=== PATIENT | male | born 1970 | race Caucasian/White ===

== ENCOUNTER → 2023-04-05 11:11 | Outpatient (BNVA) | payer OTHER, SELFPAY | PROVIDERS: PCP Internal Medicine; Visit Provider Physician Assistant ==

== ENCOUNTER 2023-05-08 11:08 | Outpatient (AMB) | payer OTHER, SELFPAY ==
--- NOTE | 2023-05-08 11:10 | A.OFFVIS_ITS ---
Intake VS Expanded 05/08/23 11:16 BP 161/88 H Blood Pressure Location Rt brachial Blood Pressure Position Sitting Pulse 135 H Pulse Source Pulse Oximeter Temp 97.2 F Temperature Source Temporal Artery Scan Pulse Oximetry 95 Oxygen Delivery Method Room Air Height 5 ft 9 in Weight 232 lb 6.4 oz BMI 34.3 Body Fat % 32.3 Body Fat Mass 75.0 Fat Free Mass 157.4 Visceral Fat Rating 17.0 Body Water % 47.7 Body Water Mass 110.8 Muscle Mass/Score 149.6 Basal Metabolic Rate/Score 2,129 Comment pt stated he ran across the parking lot Intake Visit Reasons: (OV) [employer] BMI 34.4 MWL Allergies trazodone Allergy (Intermediate, Verified 05/08/23 11:14) Rash aspirin Allergy (Unknown, Verified 05/08/23 11:14) nose bleeds benztropine [Cogentin] Allergy (Unknown, Verified 05/08/23 11:14) Rash lithium Allergy (Unknown, Verified 05/08/23 11:14) kidney failure risperidone [Risperdal] Allergy (Unknown, Verified 05/08/23 11:14) Rash atorvastatin [From Lipitor] Adverse Reaction (Mild, Verified 05/08/23 11:14) Rash mirtazapine [From Remeron] Adverse Reaction (Mild, Verified 05/08/23 11:14) Rash Wheat Allergy (Unknown, Uncoded 08/15/18 00:00) vomit Whey products Allergy (Unknown, Uncoded 08/15/18 00:00) vomit HPI HPI Comments History of Present Illness Details This is a 52 year old man who is here to start MWL program. He was in our MWL program a few years ago. His goal is to reduce risk for pre DM and lose weight. He reports first being concerned about his weight many years. He has tried multiple methods of weight loss including [facility] program, OTC pills without permanent results. He lives alone. He works [employer] from 11 am - 2pm. He does not have internet or a smart phone. On SSI - no snap. He wakes at: 8am, bed at 9pm Breakfast: 8:30 - yogurt or bran flakes or oatmeal 2 % milk. Sometimes decaf coffee with splenda and 2% milk. Dilutes fruit juice Lunch: skips lunch 3 d/week. If eats, has salad or air fried pork chop and green beans. Crystal Light Dinner: 5pm - salad and same as lunch. 2% milk or water. After dinner: nothing Other snacks: may have a granola bar in the afternoon Liquids: Rare soda, diluted juice and Gatorade 0 Alcohol intake: none, tobacco: none, marijuana: none Exercise: no gym membership or equipment at home, no internet service at his home. Likes to walk. ELLA: 0 ESS:3 GERD1: QOL:100 PFSH Surgical History Hx of endoscopy Hx of colonoscopy Hx of LASIK Family History Mother Diabetes Colitis Depression Father Cataracts, both eyes Diabetes Social History (Updated 04/05/23 @ 11:34 by Diane Ramon CMA) Alcohol intake: never Patient Tobacco Use Status: Never used Tobacco Assessment & Plan Assessment & Plan (1) Obesity: Code(s): E66.9 - Obesity, unspecified Plan: This is a 52 yo man with obesity and Aspergers symdrome with multiple medical problems who will start MWL program. He will start MWL classes and watch all classes in the office before his appt with Glory. He does not have internet access. 1. Adequate sleep of 7-8 hours per night discussed 2. Healthy meal plan - stop skipping meals and stop sweetened drinks - needs to work on portion size. He does not want to use shakes. All meals/MR's need to take 20 minutes to complete Breakfast -italian yogurt with 1/2 berries - list given to him. Lunch - 6 oz lean protein and 8 oz vegetables - list given Afternoon - stop granola bars - may have protein bar Dinner - 6 oz lean protein, 8 ozvegetable, 1 serving fruit Exercise - no access to gym equipment or videos. Will walk 20 minutes every morning and try to walk a second time per day for 20 minutes. Next appt with Glory in 4 weeks, will watch MWL classes in office. Patient is morbidly obese and is not considered stable at this time.?I spent a total of 45 minutes reviewing/updating records, examining the patient and counseling the patient on weight management as detailed above. (2) Hypothyroid: Code(s): E03.9 - Hypothyroidism, unspecified (3) HTN (hypertension), benign: Code(s): I10 - Essential (primary) hypertension (4) Hyperlipidemia: Code(s): E78.5 - Hyperlipidemia, unspecified (5) Bipolar 1 disorder: Code(s): F31.9 - Bipolar disorder, unspecified (6) Aspergers' syndrome: Code(s): F84.5 - Asperger's syndrome (7) Irregular heart rate: Code(s): I49.9 - Cardiac arrhythmia, unspecified Plan see above Coding Level of Care Code New Pt Level 4 (03136) Diagnoses Obesity E66.9 Hypothyroid E03.9 HTN (hypertension), benign I10 Hyperlipidemia E78.5 Bipolar 1 disorder F31.9 Aspergers' syndrome F84.5 Irregular heart rate I49.9
[2023-05-08 11:16] VITALS: BP 161/88; PULSE 135; TEMP 36.2; O2SAT 95; BMI 34.3
== END 2023-05-08 11:54 | disposition home or self-care (01) ==
PROVIDERS: PCP Internal Medicine; Visit Provider Physician Assistant
DX: E66.9 Obesity, unspecified (principal); E03.9 Hypothyroidism, unspecified; I10 Essential (primary) hypertension; E78.5 Hyperlipidemia, unspecified; F31.9 Bipolar disorder, unspecified; F84.5 Asperger's syndrome; I49.9 Cardiac arrhythmia, unspecified
CPT/HCPCS: 99204

== ENCOUNTER → 2023-05-08 11:08 | Outpatient (BNVA) | payer OTHER, SELFPAY | PROVIDERS: PCP Internal Medicine; Visit Provider Physician Assistant | DX: E66.9 Obesity, unspecified (principal); Z68.34 Body mass index [BMI] 34.0-34.9, adult; E03.9 Hypothyroidism, unspecified; I10 Essential (primary) hypertension; E78.5 Hyperlipidemia, unspecified; F31.9 Bipolar disorder, unspecified; F84.5 Asperger's syndrome; I49.9 Cardiac arrhythmia, unspecified | CPT/HCPCS: 99202 ==

== ENCOUNTER 2023-06-05 10:53 | Outpatient (AMB) | payer OTHER, SELFPAY ==
--- NOTE | 2023-06-05 10:59 | A.OFFVIS_ITS ---
Intake Intake Visit Reasons: (OV) Initial Nutrition MWL Allergies trazodone Allergy (Intermediate, Verified 05/08/23 11:14) Rash aspirin Allergy (Unknown, Verified 05/08/23 11:14) nose bleeds benztropine [Cogentin] Allergy (Unknown, Verified 05/08/23 11:14) Rash lithium Allergy (Unknown, Verified 05/08/23 11:14) kidney failure risperidone [Risperdal] Allergy (Unknown, Verified 05/08/23 11:14) Rash atorvastatin [From Lipitor] Adverse Reaction (Mild, Verified 05/08/23 11:14) Rash mirtazapine [From Remeron] Adverse Reaction (Mild, Verified 05/08/23 11:14) Rash Wheat Allergy (Unknown, Uncoded 08/15/18 00:00) vomit Whey products Allergy (Unknown, Uncoded 08/15/18 00:00) vomit HPI Nutrition Presentation Details Medical weight loss - start date Reason for consult elevated BMI Diet Assmnt Details Reports he has has issues with portion control - related to depression. Has therapist, talks about food with them. he reports he hasn't implemented anything discussed in initial appt with PA. He is concerned about having prediabetes, his mother has diabetes. 1 oatmeal packet - pre portioned. likes salad and pork chops. pt not able to provide typical intake or a 24 hour recall but shares foods he likes/dislikes. Likes yogurt, pork chops, baked potato, oatmeal, decaf coffee, likes to drink milk (3 cups at a time) . States sometimes he overeats so much he vomits. Has a nutrition book and read he needs to eat less than 1200kal per day. Dietary counseling reduction Diagnosis Nutrition problem #1 overweight/obesity As related to (etiology) #1 excess energy intake and physical inactivity As evidenced by (sign/symptom) #1 high BMI Monitoring/Goals Nutrition problem monitoring total energy intake, level of knowledge/skill, total PRO intake, total CHO intake and weight Learning/Education Readiness to learn fair Stages of change contemplation Most Recent Diabetes Results: No Data to Display PFSH Surgical History Hx of endoscopy Hx of colonoscopy Hx of LASIK Family History Mother Diabetes Colitis Depression Father Cataracts, both eyes Diabetes Social History Alcohol intake: never Patient Tobacco Use Status: Never used Tobacco Assessment & Plan Assessment & Plan (1) Obesity (BMI 30-39.9): Code(s): E66.9 - Obesity, unspecified Plan rec portion methods such as small plates, utensils, meal prep containers from the [employer] store, premade salads. Encouraged structured meals that contain protein, veg and carb in small portions. Coding Level of Care Code Nutr Indiv Intake (72580) Diagnoses Obesity (BMI 30-39.9) E66.9 Time Spent (min) 35
== END 2023-06-05 11:42 | disposition home or self-care (01) ==
PROVIDERS: PCP Internal Medicine; Visit Provider Dietitian, Registered
DX: E66.9 Obesity, unspecified (principal)

== ENCOUNTER → 2023-06-05 10:53 | Outpatient (BNVA) | payer OTHER, SELFPAY | PROVIDERS: PCP Internal Medicine; Visit Provider Dietitian, Registered | DX: E66.9 Obesity, unspecified (principal) | CPT/HCPCS: 97802 ==

== ENCOUNTER 2023-08-03 10:59 | Outpatient (AMB) | payer OTHER, SELFPAY ==
--- NOTE | 2023-08-03 11:27 | MHC.OFFVISWM ---
VS Expanded 08/03/23 11:48 BP 144/80 H Blood Pressure Location Rt brachial Blood Pressure Position Sitting Pulse 126 H Pulse Source Pulse Oximeter Temp 96.8 F Temperature Source Tympanic Pulse Oximetry 92 Oxygen Delivery Method Room Air Height 5 ft 9 in Weight 236 lb 3.2 oz BMI 34.9 Body Fat % 32.6 Body Fat Mass 77.0 Fat Free Mass 159.2 Visceral Fat Rating 18.0 Body Water % 47.4 Body Water Mass 112.0 Muscle Mass/Score 151.2 Basal Metabolic Rate/Score 2,156 Intake Visit Reasons: (OV) f/u MWL Allergies trazodone Allergy (Intermediate, Verified 08/03/23 11:41) Rash aspirin Allergy (Unknown, Verified 08/03/23 11:41) nose bleeds benztropine [Cogentin] Allergy (Unknown, Verified 08/03/23 11:41) Rash lithium Allergy (Unknown, Verified 08/03/23 11:41) kidney failure risperidone [Risperdal] Allergy (Unknown, Verified 08/03/23 11:41) Rash atorvastatin [From Lipitor] Adverse Reaction (Mild, Verified 08/03/23 11:41) Rash mirtazapine [From Remeron] Adverse Reaction (Mild, Verified 08/03/23 11:41) Rash Wheat Allergy (Unknown, Uncoded 08/03/23 11:41) vomit Whey products Allergy (Unknown, Uncoded 08/03/23 11:41) vomit Medication List - Last Reconciled 08/03/23 by ALLAN Colvin diltiazem HCl ER (DILT-XR) 120 mg PO DAILY fluoxetine 20 mg PO DAILY guanfacine ER 2 mg PO DAILY levothyroxine 50 mcg PO DAILY lisinopril mg PO lorazepam 1 mg PO BID melatonin 5 mg PO BEDTIME olanzapine 15 mg PO BEDTIME olanzapine 5 mg PO BEDTIME pravastatin 20 mg PO DAILY HPI Comments Details: Pt presents in followup for MWL. Visit #3. Starting weight/BMI: 232.4/34.3 Total weight change: +3.8lbs Meal plan: Breakfast - latvian yogurt with 1/2c berries Lunch - 6 oz lean protein and 8 oz vegetables - list given Afternoon - stop granola bars - may have protein bar Dinner - 6 oz lean protein, 8 oz vegetable, 1 serving fruit Pt reports he is going to see a heart doctor for high HR. Planning to see a specialist August 15. No lightheadedness/dizziness or chest pain currently. Pt reports it's been hard following the plan. Cut out soda, changed to Splenda, trying not to eat carbohydrates. Is hesitant to exercise due to HR. Today had a cup of decaf coffee with egg McMuffin, glass of orange juice. Also has been drinking green tea with Splenda. Yesterday had a tuna fish sandwich and some fat free milk. Trying to eat more fruit and salad. Pt continues to struggle with portion control. Has not yet watched [employer] videos- no internet at home. PFSH Surgical History Hx of endoscopy Hx of colonoscopy Hx of LASIK Family History Mother Diabetes Colitis Depression Father Cataracts, both eyes Diabetes Social History Alcohol intake: never Patient Tobacco Use Status: Never used Tobacco Assessment & Plan Assessment & Plan (1) Obesity: Code(s): E66.9 - Obesity, unspecified Category: Medical (2) Irregular heart rate: Code(s): I49.9 - Cardiac arrhythmia, unspecified Category: Medical (3) Aspergers' syndrome: Code(s): F84.5 - Asperger's syndrome Category: Medical (4) Bipolar 1 disorder: Code(s): F31.9 - Bipolar disorder, unspecified Category: Medical (5) Hyperlipidemia: Code(s): E78.5 - Hyperlipidemia, unspecified Category: Medical (6) HTN (hypertension), benign: Code(s): I10 - Essential (primary) hypertension Category: Medical (7) Hypothyroid: Code(s): E03.9 - Hypothyroidism, unspecified Category: Medical Plan Pt will have followup after visit to address HR and hopefully at that point will be able to exercise more. We discussed that he has made a lot of positive changes already like giving up soda and trying to cut back on carbs. He still needs to increase his protein intake and reduce portions. Gave handout on protein bars and discussed that they are a good option for days when he is busy. RTC 1 month for in person visit. Patient is obese and is not considered stable at this time. I spent a total of 30 minutes reviewing/updating records, examining the patient and counseling the patient on weight management as detailed above.
[2023-08-03 11:48] VITALS: BP 144/80; PULSE 126; TEMP 36; O2SAT 92; BMI 34.9
== END 2023-08-03 12:12 | disposition home or self-care (01) ==
PROVIDERS: PCP Internal Medicine; Visit Provider Physician Assistant Surgical
DX: E66.9 Obesity, unspecified (principal); I49.9 Cardiac arrhythmia, unspecified; F84.5 Asperger's syndrome; F31.9 Bipolar disorder, unspecified; E78.5 Hyperlipidemia, unspecified; I10 Essential (primary) hypertension; E03.9 Hypothyroidism, unspecified
CPT/HCPCS: 99214

== ENCOUNTER → 2023-08-03 10:59 | Outpatient (BNVA) | payer OTHER, SELFPAY | PROVIDERS: PCP Internal Medicine; Visit Provider Physician Assistant Surgical | DX: E66.9 Obesity, unspecified (principal); E78.5 Hyperlipidemia, unspecified; E03.9 Hypothyroidism, unspecified; I10 Essential (primary) hypertension; I49.9 Cardiac arrhythmia, unspecified; F84.5 Asperger's syndrome; F31.9 Bipolar disorder, unspecified; Z68.34 Body mass index [BMI] 34.0-34.9, adult | CPT/HCPCS: 99212 ==

== ENCOUNTER 2024-01-01 12:13 | Outpatient (AMB) | payer OTHER, SELFPAY ==
--- NOTE | 2024-01-01 12:04 | A.OFFVIS_ITS ---
VS Expanded 01/01/24 12:17 Height 5 ft 9 in Weight 248 lb BMI 36.6 Intake Visit Reasons: (TV) F/U MWL Allergies trazodone Allergy (Intermediate, Verified 08/03/23 11:41) Rash aspirin Allergy (Unknown, Verified 08/03/23 11:41) nose bleeds benztropine [Cogentin] Allergy (Unknown, Verified 08/03/23 11:41) Rash lithium Allergy (Unknown, Verified 08/03/23 11:41) kidney failure risperidone [Risperdal] Allergy (Unknown, Verified 08/03/23 11:41) Rash atorvastatin [From Lipitor] Adverse Reaction (Mild, Verified 08/03/23 11:41) Rash mirtazapine [From Remeron] Adverse Reaction (Mild, Verified 08/03/23 11:41) Rash Wheat Allergy (Unknown, Uncoded 08/03/23 11:41) vomit Whey products Allergy (Unknown, Uncoded 08/03/23 11:41) vomit Medication List - Last Reconciled 01/01/24 by ALLAN Colvin diltiazem HCl ER (DILT-XR) 120 mg PO DAILY fluoxetine 20 mg PO DAILY guanfacine ER 2 mg PO DAILY levothyroxine 50 mcg PO DAILY lisinopril mg PO lorazepam 1 mg PO BID melatonin 5 mg PO BEDTIME olanzapine 15 mg PO BEDTIME olanzapine 5 mg PO BEDTIME pravastatin 20 mg PO DAILY HPI Comments Details: Pt presents in followup for MWL. Visit #4. Starting weight/BMI: 232.4/34.3 Weight last visit: 236 Total weight change: +15.6lbs Pt reports I'm coming down with something. Recently was told his A1C increased to 7.1, interested in food options for glycemic control. Was started on metformin. Drinks a lot of milk. Continues to struggle with portion control. Pt reports has difficulty getting in touch with heart doctor , they never called me. Meal plan: Breakfast - new zealander yogurt with berries Lunch - 6 oz lean protein and 8 oz vegetables - list given Afternoon - protein bar Dinner - 6 oz lean protein, 8 oz vegetable, 1 serving fruit Plans to increase walking for exercise. PFSH Surgical History Hx of endoscopy Hx of colonoscopy Hx of LASIK Family History Mother Diabetes Colitis Depression Father Cataracts, both eyes Diabetes Social History Alcohol intake: never Patient Tobacco Use Status: Never used Tobacco Telehealth Telehealth Telehealth Platform: Telephone Location of provider rendering services: practice address Location of patient: address on file Patient Identification confirmed using: Name, : Yes Telehealth method: voice only Patient verbally consented to treatment: Yes Patient verbally consented to billing insurance company: Yes Patient informed of any privacy concerns related to visit: Yes Minutes spent on Phone/Video with Pt.: 20 Assessment & Plan Assessment & Plan (1) Obesity: Code(s): E66.9 - Obesity, unspecified Category: Medical Plan Reviewed food list for weight management with pt. He does not have a cell phone that can receive pictures so we reviewed this via phone call. Discussed limiting any beverages, only drink water or zero calorie beverages. Reiterated high protein meal plan listed above. Gave brand names for protein bars and shakes. RTC 3 months. Will provide handouts in person at next visit. I spent a total of 30 minutes reviewing/updating records, examining the patient and counseling the patient on weight management as detailed above.
[2024-01-01 12:17] VITALS: BMI 36.6
== END 2024-01-01 12:33 | disposition home or self-care (01) ==
LOC: HO.HBS 12:13
PROVIDERS: PCP Internal Medicine; Visit Provider Physician Assistant Surgical
DX: E66.9 Obesity, unspecified (principal); Z68.36 Body mass index [BMI] 36.0-36.9, adult
CPT/HCPCS: 99442; G2211

== ENCOUNTER → 2024-01-01 12:13 | Outpatient (BNVA) | payer OTHER, SELFPAY | PROVIDERS: PCP Internal Medicine; Visit Provider Physician Assistant Surgical ==

== ENCOUNTER 2024-03-11 10:43 | Outpatient (AMB) | payer OTHER, SELFPAY ==
--- NOTE | 2024-03-11 10:47 | A.OFFVIS_ITS ---
VS Expanded 03/11/24 11:20 BP 124/82 Blood Pressure Location Rt brachial Blood Pressure Position Sitting Pulse 100 Pulse Source Pulse Oximeter Temp 97.7 F Temperature Source Temporal Artery Scan Pulse Oximetry 95 Oxygen Delivery Method Room Air Height 5 ft 9 in Weight 242 lb 6.4 oz BMI 35.8 Body Fat % 34.6 Body Fat Mass 83.8 Fat Free Mass 158.6 Visceral Fat Rating 19.0 Body Water % 45.5 Body Water Mass 110.2 Muscle Mass/Score 150.8 Basal Metabolic Rate/Score 2,158 Intake Visit Reasons: (OV) F/U MWL per [place] Allergies trazodone Allergy (Intermediate, Verified 03/11/24 11:00) Rash aspirin Allergy (Unknown, Verified 03/11/24 11:00) nose bleeds benztropine [Cogentin] Allergy (Unknown, Verified 03/11/24 11:00) Rash lithium Allergy (Unknown, Verified 03/11/24 11:00) kidney failure risperidone [Risperdal] Allergy (Unknown, Verified 03/11/24 11:00) Rash atorvastatin [From Lipitor] Adverse Reaction (Mild, Verified 03/11/24 11:00) Rash mirtazapine [From Remeron] Adverse Reaction (Mild, Verified 03/11/24 11:00) Rash Wheat Allergy (Unknown, Uncoded 08/03/23 11:41) vomit Whey products Allergy (Unknown, Uncoded 08/03/23 11:41) vomit Medication List - Last Reconciled 03/11/24 by ALLAN Colvin diltiazem HCl ER (DILT-XR) 120 mg PO DAILY fluoxetine 20 mg PO DAILY guanfacine ER 2 mg PO DAILY levothyroxine 50 mcg PO DAILY lisinopril mg PO lorazepam 1 mg PO BID melatonin 5 mg PO BEDTIME metformin ER 500 mg PO DAILY olanzapine 15 mg PO BEDTIME olanzapine 5 mg PO BEDTIME pravastatin 20 mg PO DAILY HPI Comments Details: Starting weight/BMI: 232.4/34.3 Weight last visit: 248 Today's weight: 242.4 (-5.6) Total weight change: +8lbs Pt reports I'm coming down with something. Recently was told his A1C increased to 7.1 in Dec. Was started on metformin, denies side effects. Reports his provider wanted to start the needle but he did not want to (not insulin- Trulicity, etc). Continues to struggle with portion control, always feels hungry. Meal plan: Breakfast - chinese yogurt with berries Lunch - 6 oz lean protein and 8 oz vegetables Afternoon - protein bar Dinner - 6 oz lean protein, 8 oz vegetable, 1 serving fruit bought apples instead of watermelon, stopped soda/Gatorade/iced teas, buying wheat bread and low samir dumont for sandwiches tries to drink water, uses Crystal Light, does drink milk sometimes but has cut down Wants to increase walking for exercise. PFSH Surgical History Hx of endoscopy Hx of colonoscopy Hx of LASIK Family History Mother Diabetes Colitis Depression Father Cataracts, both eyes Diabetes Social History Alcohol intake: never Patient Tobacco Use Status: Never used Tobacco Assessment & Plan Assessment & Plan (1) Obesity: Code(s): E66.9 - Obesity, unspecified Category: Medical (2) Hypothyroid: Code(s): E03.9 - Hypothyroidism, unspecified Category: Medical (3) HTN (hypertension), benign: Code(s): I10 - Essential (primary) hypertension Category: Medical (4) Hyperlipidemia: Code(s): E78.5 - Hyperlipidemia, unspecified Category: Medical (5) Aspergers' syndrome: Code(s): F84.5 - Asperger's syndrome Category: Medical (6) Irregular heart rate: Code(s): I49.9 - Cardiac arrhythmia, unspecified Category: Medical (7) Bipolar 1 disorder: Code(s): F31.9 - Bipolar disorder, unspecified Category: Medical Plan Pt will continue same meal plan. I encouraged him that he has made a lot of positive healthy nutrition changes. Encouraged him to exercise as part of his weight loss plan. Provided healthy foods handout that we discussed at last visit. RTC 3 months. I spent a total of 30 minutes reviewing/updating records, examining the patient and counseling the patient on weight management as detailed above.
[2024-03-11 11:20] VITALS: BP 124/82; PULSE 100; TEMP 36.5; O2SAT 95; BMI 35.8
--- OUTSIDE RECORDS SUMMARY | 2024-03-13 14:48 | XMS_ITS | Clinical Summary ---
Author Organization Unknown Care Team Providers Care Cloth Finisher Name Role Phone AIMEE SAUCEDO, BRIDGER Unavailable Unavailable GILBERT NOBLE, LENI Unavailable Unavailable Payers Payer Name Policy Type Policy Number Effective Date Expira tion Date [facility] [id number] [place]ID [place] [id number] MEDICARE - [place] [id number] Problems Condition Name Condition Details Condition Category Status Onset Date Resolution Date Last Treatment Date Treating Clinician Comments BIPOLAR DISORDER, CURRENT EPISODE DEPRESSED, MILD Active 2022-04 00:00: 00 GENERALIZED ANXIETY DISORDER Active 2022-04 00:00: 00 AUTISTIC DISORDER Active 2022-04 00:00: 00 Allergies, Adverse Reactions, Alerts Allergy Name Allergy Type Status Severity Reaction(s) Onset Date Inactive Date Treating Clinician Comments BACTRIM Propensity to adverse reactions Active 2022-04 18:03: 08 TRAZADONE Propensity to adverse reactions Active 2022-04 18:02: 53 ALBUTEROL Propensity to adverse reactions Active 2022-04 18:03: 26 REMERON Propensity to adverse reactions Active 2022-04 18:06: 15 LITHIUM Propensity to adverse reactions Active 2022-04 18:03: 41 HYDROXYZINE PAMOATE Propensity to adverse reactions Active 2022-04 18:04: 50 RISPERIDONE Propensity to adverse reactions Active 2022-04 08:58: 18 ASPIRIN RELATED MEDICATIONS Propensity to adverse reactions Active 2022-04 18:05: 32 Medications Ordered Medication Name Filled Medication Name Start Date Stop Date Current Medication? Ordering Clinician Indication Dosage Frequency Signature (SIG) Comments Components fluoxetine 20 mg capsule 2022-04 00:00: 00 Yes [id number] Per instruc tions EVERY DAY Per instructio ns EVERY DAY (route: oral) Med Classific ation: Central Nervous System Agents guanfacine ER 2 mg tablet,exte nded release 24 hr 2022-04 00:00: 00 01-22 00:00 :00 No [id number] Per instruc tions EVERY Per instructio ns EVERY (route: oral) Med Classific ation: Central Nervous System Agents lorazepam 1 mg tablet 2022-04 00:00: 00 Yes [id number] Per instruc tions TWICE DAILY NEEDED Per instructio ns TWICE DAILY NEEDED (route: oral) Med Classific ation: Central Nervous System Agents melatonin 5 mg tablet 2022-04 00:00: 00 Yes [id number] Per instruc tions EVERY NIGHT AT BEDTIME NEEDED Per instructio ns EVERY NIGHT AT BEDTIME NEEDED (route: oral) Med Classific ation: Central Nervous System Agents olanzapine 5 mg tablet 2022-04 00:00: 00 01-22 00:00 :00 No [id number] Per instruc tions EVERY DAY NEEDED Per instructio ns EVERY DAY NEEDED (route: oral) Med Classific ation: Central Nervous System Agents DILT-XR 120 mg capsule, extended release 2022-04 00:00: 00 Yes [id number] Unavailable Per instruc tions DAILY Per instructio ns DAILY (route: oral) Med Classific ation: Cardiovas cular Therapy Agents olanzapine 15 mg tablet 12-21 00:00: 00 Yes [id number] Per instruc tions AT BEDTIME Per instructio ns AT BEDTIME (route: oral) Med Classific ation: Central Nervous System Agents acetaminoph en 325 mg tablet 2022-04 00:00: 00 Yes [id number] 325 mg EVERY 4 HOURS 325 mg EVERY 4 HOURS (route: oral) Med Classific ation: Analgesic , Anti-infl ammatory or Antipyret ic cetirizine 10 mg tablet 2022-04 0 00:00: 00 Yes [id number] 10 mg DAILY 10 mg DAILY (route: oral) Med Classific ation: Respirato ry Therapy Agents guanfacine 2 mg tablet 2022-04 00:00: 00 11-16 23:59 :00 No [id number] 2.5 mg DAILY 2.5 mg DAILY (route: oral) Med Classific ation: Cardiovas cular Therapy Agents levothyroxi ne 50 mcg tablet 2022-04 0 00:00: 00 Yes [id number] 50 mcg DAILY 50 mcg DAILY (route: oral) Med Classific ation: Endocrine lisinopril 2.5 mg tablet 2022-04 00:00: 00 11-16 23:59 :00 No [id number] 25 mg DAILY 25 mg DAILY (route: oral) Med Classific ation: Cardiovas cular Therapy Agents pravastatin 10 mg tablet 2022-04 00:00: 00 11-16 23:59 :00 No [id number] 10 mg BEDTIME 10 mg BEDTIME (route: oral) Med Classific ation: Cardiovas cular Therapy Agents guanfacine ER 3 mg tablet,exte nded release 24 hr 11-16 00:00: 00 Yes [id number] 3 mg DAILY 3 mg PRISCILLA Y (route: oral) Med Classific ation: Central Nervous System Agents lisinopril 5 mg tablet 11-16 00:00: 00 12-26 23:59 :00 No [id number] 25 mg DAILY 25 mg DAILY (route: oral) Med Classific ation: Cardiovas cular Therapy Agents pravastatin 40 mg tablet 11-16 00:00: 00 Yes [id number] 40 mg BEDTIME 40 mg BEDTIME (route: oral) Med Classific ation: Cardiovas cular Therapy Agents metformin ER 500 mg tablet,exte nded release 24hr (osmotic) 12-26 00:00: 00 Yes [id number] 500 mg DAILY 500 mg DAILY (route: oral) Med Classific ation: Endocrine docusate sodium 100 mg capsule 12-26 00:00: 00 Yes [id number] 1 capsule 2 TIMES DAILY 1 capsule 2 TIMES DAILY (route: oral) Med Classific ation: Gastroint estinal Therapy Agents lisinopril 2.5 mg tablet 12-26 00:00: 00 Yes [id number] 2.5 mg DAILY 2.5 mg DAILY (route: oral) Med Classific ation: Cardiovas cular Therapy Agents multivitami n with minerals tablet 12-26 00:00: 00 Yes [id number] 1 tablet DAILY 1 tablet DAILY (route: oral) Med Classific ation: Electroly te Balance-N utritiona l Products Vital Signs Vital Name Observation Time Observation Value Commen ts Pulse 2024-03-04 12:34:00.000 89 /min Pulse 2024-02-27 12:51:00.000 128 /min Pulse 2024-02-19 09:47:00.000 99 /min Pulse 2024-02-05 11:32:00.000 69 /min Pulse 2024-01-22 12:37:00.000 88 /min Respirations 2024-03-11 09:30:00.000 18 /min Respirations 2024-03-04 12:34:00.000 18 /min Respirations 2024-02-27 12:51:00.000 18 /min Respirations 2024-02-19 09:47:00.000 18 /min Respirations 2024-02-05 11:32:00.000 18 /min Respirations 2024-01-22 12:37:00.000 18 /min Systolic Blood Pressure 2024-03-11 09:30:00.000 133 mm [Hg] Systolic Blood Pressure 2024-03-04 12:34:00.000 142 mm [Hg] Systolic Blood Pressure 2024-02-27 12:51:00.000 155 mm [Hg] Systolic Blood Pressure 2024-02-19 09:47:00.000 111 mm [Hg] Systolic Blood Pressure 2024-02-05 11:32:00.000 142 mm [Hg] Systolic Blood Pressure 2024-01-22 12:37:00.000 122 mm [Hg] Diastolic Blood Pressure 2024-03-11 09:30:00.000 83 mm [Hg] Diastolic Blood Pressure 2024-03-04 12:34:00.000 82 mm [Hg] Diastolic Blood Pressure 2024-02-27 12:51:00.000 85 mm [Hg] Diastolic Blood Pressure 2024-02-19 09:47:00.000 77 mm [Hg] Diastolic Blood Pressure 2024-02-05 11:32:00.000 79 mm [Hg] Diastolic Blood Pressure 2024-01-22 12:37:00.000 77 mm [Hg] Plan of Treatment Planned Activity Planned Date Details Comments Future Scheduled Test SKILLED NU RSE TO EVALUATE PATIENT, IDENTIFY PRIMARY AND CO-MORBID CONDITIONS CODED PER CODING GUIDELINES, AND DEVELOP PATIENT SPECIFIC PLAN OF CARE THAT INCLUDES PATIENT GOAL FOR HOME HEALTH. [code = SKILLED NURSE TO EVALUATE PATIENT, IDENTIFY PRIMARY AND CO-MORBID CONDITIONS CODED PER CODING GUIDELINES, AND DEVELOP PATIENT SPECIFIC PLAN OF CARE THAT INCLUDES PATIENT GOAL FOR HOME HEALTH.] Future Scheduled Test SKILLED NU RSE WILL MAINTAIN SITUATIONAL AWARENESS FOR SAFETY AND WILL NOTIFY CLINICAL BOOTH SUPERVISOR AND PHYSICIAN/PROVIDER WITH ANY CHANGE IN CONDITION. [code = SKILLED NURSE WILL MAINTAIN SITUATIONAL AWARENESS FOR SAFETY AND WILL NOTIFY CLINICAL BOOTH SUPERVISOR AND PHYSICIAN/PROVIDER WITH ANY CHANGE IN CONDITION.] Future Scheduled Test SKILLED NU RSE TO ASSESS PATIENTS PSYCHOSOCIAL STATUS TO IDENTIFY POTENTIAL ISSUES THAT MAY COMPLICATE THE PROVISION OF THE PLAN OF CARE INCLUDING THE PATIENTS ABILITY TO ACCESS COMMUNITY RESOURCES AND PSYCHOSOCIAL SUPPORT SERVICES. [code = SKILLED NURSE TO ASSESS PATIENTS PSYCHOSOCIAL STATUS TO IDENTIFY POTENTIAL ISSUES THAT MAY COMPLICATE THE PROVISION OF THE PLAN OF CARE INCLUDING THE PATIENTS ABILITY TO ACCESS COMMUNITY RESOURCES AND PSYCHOSOCIAL SUPPORT SERVICES.] Goal 2023-05-17 Patient Goal - T O PREVENT DIABETES; TO LOSE WEIGHT; TO STY OUT OF HOSPITAL Goal 2023-03-20 Patient Goal - T O PREVENT DIABETES; TO LOSE WEIGHT; TO STY OUT OF HOSPITAL Goal 2023-07-17 Patient Goal - T O PREVENT DIABETES; TO LOSE WEIGHT; TO STY OUT OF HOSPITAL Goal 2023-09-15 Patient Goal - T O PREVENT DIABETES; TO LOSE WEIGHT; TO STY OUT OF HOSPITAL Goal 2023-11-15 Patient Goal - T O PREVENT DIABETES; TO LOSE WEIGHT; TO STY OUT OF HOSPITAL Goal 2024-01-15 Patient Goal - T O PREVENT DIABETES; TO LOSE WEIGHT; TO STY OUT OF HOSPITAL Goal Patient Goal - T O PREVENT DIABETES; TO LOSE WEIGHT; TO STY OUT OF HOSPITAL Goal Provider Goal - A PLAN OF CARE WILL BE ESTABLISHED THAT MEETS PATIENT'S USP NEEDS AND INCLUDES PATIENT GOAL FOR HOME HEALTH. Goal Provider Goal - PATIENT WILL REMAIN SAFE IN THE COMMUNITY AND WILL BE FREE OF DANGER TO SELF AND OTHERS THROUGHOUT THE CERTIFICATION PERIOD. Goal Provider Goal - PSYCHOSOCIAL NEEDS WILL BE IDENTIFIED AND PLAN IMPLEMENTED TO MINIMIZE RISK THROUGHOUT CERTIFICATION PERIOD. Encounters Start Date/Time End Date/Time Encounter Type Admission Type Attending [facility] Care Department Encounter ID Discharge Date Discharge Status Discharge Condition Discharge Reason Percent Goals Met 2023-01-22 00:00:00 2024-03-16 00:00:00 Outpatient RECERTIFIC LENI SONG [facility] [id number] 50.00
== END 2024-03-11 11:25 | disposition home or self-care (01) ==
PROVIDERS: PCP Internal Medicine; Visit Provider Physician Assistant Surgical
DX: E66.9 Obesity, unspecified (principal); E03.9 Hypothyroidism, unspecified; I10 Essential (primary) hypertension; E78.5 Hyperlipidemia, unspecified; F84.5 Asperger's syndrome; I49.9 Cardiac arrhythmia, unspecified; F31.9 Bipolar disorder, unspecified
CPT/HCPCS: 99214; G2211

== ENCOUNTER → 2024-03-11 10:43 | Outpatient (BNVA) | payer OTHER, SELFPAY | PROVIDERS: PCP Internal Medicine; Visit Provider Physician Assistant Surgical | DX: E66.9 Obesity, unspecified (principal); E03.9 Hypothyroidism, unspecified; I10 Essential (primary) hypertension; I49.9 Cardiac arrhythmia, unspecified; E78.5 Hyperlipidemia, unspecified; F31.9 Bipolar disorder, unspecified; F84.5 Asperger's syndrome; Z68.35 Body mass index [BMI] 35.0-35.9, adult; Z79.84 Long term (current) use of oral hypoglycemic drugs | CPT/HCPCS: 99212 ==

== ENCOUNTER 2024-06-06 11:42 | Outpatient (AMB) | payer OTHER, SELFPAY ==
--- NOTE | 2024-06-06 11:35 | MHC.OFFVISWM ---
VS Expanded 06/06/24 11:53 Height 5 ft 9 in Weight 243 lb BMI 35.9 Intake Visit Reasons: (TELEPHONE) F/U [facility] Allergies trazodone Allergy (Intermediate, Verified 03/11/24 11:00) Rash aspirin Allergy (Unknown, Verified 03/11/24 11:00) nose bleeds benztropine [Cogentin] Allergy (Unknown, Verified 03/11/24 11:00) Rash lithium Allergy (Unknown, Verified 03/11/24 11:00) kidney failure risperidone [Risperdal] Allergy (Unknown, Verified 03/11/24 11:00) Rash atorvastatin [From Lipitor] Adverse Reaction (Mild, Verified 03/11/24 11:00) Rash mirtazapine [From Remeron] Adverse Reaction (Mild, Verified 03/11/24 11:00) Rash Wheat Allergy (Unknown, Uncoded 08/03/23 11:41) vomit Whey products Allergy (Unknown, Uncoded 08/03/23 11:41) vomit Medication List - Last Reconciled 06/06/24 by ALLAN Colvin diltiazem HCl ER (DILT-XR) 120 mg PO DAILY fluoxetine 20 mg PO DAILY guanfacine ER 2 mg PO DAILY levothyroxine 50 mcg PO DAILY lisinopril mg PO lorazepam 1 mg PO BID melatonin 5 mg PO BEDTIME metformin ER 500 mg PO DAILY olanzapine 15 mg PO BEDTIME olanzapine 5 mg PO BEDTIME pravastatin 20 mg PO DAILY HPI Comments Details: Starting weight/BMI: 232.4/34.3 Weight last visit: 242.4 Today's weight: 243 Total weight change: +8.6 lbs Currently fighting a cold. Continues to struggle with portion control, always feels hungry. Pt reports things have not been going very well. Continues on metformin. been trying not to eat a lot . I'm always thirsty. Still does not want to start anything in addition like Trulicity. When I get really depressed I eat a lot. I have a fear of needles. Last A1C was 7.1, rechecking at the end of the month. Meal plan: Breakfast - kinyarwanda yogurt with berries Lunch - 6 oz lean protein and 8 oz vegetables Afternoon - protein bar Dinner - 6 oz lean protein, 8 oz vegetable, 1 serving fruit bought apples instead of watermelon, stopped soda/Gatorade/iced teas, buying wheat bread and low samir dumont for sandwiches tries to drink water, uses Crystal Light, does drink milk sometimes but has cut down, uses Splenda with decaf coffee. Thinks he is drinking too much milk, also drinks green tea. Wants to increase walking for exercise. Waiting for warmer weather. Feels SOB when he walks. PFSH Surgical History Hx of endoscopy Hx of colonoscopy Hx of LASIK Family History Mother Diabetes Colitis Depression Father Cataracts, both eyes Diabetes Social History Alcohol intake: never Patient Tobacco Use Status: Never used Tobacco Telehealth Telehealth Telehealth Platform: Telephone Location of provider rendering services: practice address Location of patient: address on file Patient Identification confirmed using: Name, : Yes Telehealth method: voice only Patient verbally consented to treatment: Yes Patient verbally consented to billing insurance company: Yes Patient informed of any privacy concerns related to visit: Yes Minutes spent on Phone/Video with Pt.: 16 Assessment & Plan Assessment & Plan (1) Obesity: Code(s): E66.9 - Obesity, unspecified Category: Medical Plan Pt does not want to use anything injectable. Very discouraged with weight stagnancy. Strongly encouraged reintroducing exercise and discussed that it is very difficult, almost impossible to lose weight without a regular exercise regimen. He will try to walk more now that weather is improving. Will have A1C rechecked at end of month. RTC 3 months. I spent a total of 30 minutes reviewing/updating records, examining the patient and counseling the patient on weight management as detailed above.
[2024-06-06 11:53] VITALS: BMI 35.9
--- OUTSIDE RECORDS SUMMARY | 2024-06-06 14:19 | XMS_ITS | Clinical Summary ---
Author Organization [facility] Address [address] [place] [address] Care Team Providers Care State'S Attorney Name Role Phone Shaggy Coronado MD Primary Care Provider [phone] Allergies No known active allergies Medications Medication Sig Dispensed Refills Start Date End Date Status docusate sodium (COLACE) 100 MG capsule Take 100 mg by mouth 2 (two) times a day. 0 07/06/2021 Active FLUoxetine (PROzac) 10 MG capsule Take 10 mg by mouth daily. 0 08/21/2021 Active levothyroxine (SYNTHROID) tablet 50 mcg Take 1 tablet by mouth daily. 0 02/05/2021 Active LORazepam (ATIVAN) 0.5 MG tablet Take 0.5 mg by mouth daily as needed. 0 07/29/2021 Active OLANZapine (ZyPREXA) 15 MG tablet Take 15 mg by mouth every night at bedtime. 0 08/24/2021 Active ondansetron (ZOFRAN-ODT) 4 MG disintegrating tablet DISSOLVE 1 TO 2 TABLETS ON THE TONGUE EVERY 8 HOURS FOR UP TO 7 DAYS NEEDED FOR NAUSEA 0 07/06/2021 Active pantoprazole (PROTONIX) 40 MG tablet Take 1 tablet by mouth daily. 0 05/06/2021 Active dilTIAZem (TIAZAC) 120 MG 24 hr capsule Take 1 capsule by mouth daily. 0 02/05/2021 Active Active Problems Problem Noted Date Diagnosed Date Leucocytosis 09/27/2021 Primary osteoarthritis of left knee 09/27/2021 Anxiety 09/27/2021 Class 1 obesity due to exces s calories without serious comorbidity with body mass index (BMI) of 33.0 to 33.9 in adult 09/27/2021 Fatty liver 09/27/2021 Family History Medical History Relation Name Comments Cancer Father PROSTATE Hypertension Father Diabetes Maternal Grandfather Cancer Maternal Grandmother CA OVAR ZONIA Diabetes Mother Relation Name Status Comments Father Maternal Grandfather Maternal Grandmother Mother Social History Tobacco Use Types Packs/Day Years Used Date Smoking Tobacco: Never Smokeless Tobacco: Never Alcohol Use Standard Drinks/Week Comments Never 0 (1 standard drink = 0.6 oz pur e alcohol) Sex and Gender Information Value Date Recorded Sex Assigned at Not on file Gender Identity Not on file Sexual Orientation Not on file Job Start Date Occupation Industry Not on file Not on file Not on file Last Filed Vital Signs Vital Sign Reading Time Taken Comments Blood Pressure 118/76 09/27/2021 1:28 PM EDT Pulse 126 09/27/2021 1:28 PM EDT Temperature 36.7 ??C (98 ??F) 09/27/2021 1:2 8 PM EDT Respiratory Rate - - Oxygen Saturation 96% 09/27/2021 1:2 8 PM EDT Inhaled Oxygen Concentration - - Weight 103.6 kg (228 lb 6.4 oz) 09/27/2021 1:28 PM EDT Height 175.3 cm (5' 9 ) 09/27/2021 1:28 PM EDT pt stated- declined height Body Mass Index 33.73 09/27/2021 1:28 PM EDT Plan of Treatment Health Maintenance Due Date Last Done Comments Hepatitis B Vaccines (1 of 3 - 3-dose series) 1970 Hepatitis C Screening 1970 Pneumococcal Vaccine (1 of 2 - PCV) 1976 Depression Screening 1982 Preventative Health Evaluation 1988 Colon Cancer Screening (Colonoscopy) 09/30/2015 Shingrix-Zoster Vaccine (1 of 2) 2020 COVID-19 Vaccine ( season) 2023 03/09/2021, 11/21/2020, 07/15/2020 Influenza Vaccine (#1) 2023 , 12/06/2017, 12/22/2015, Additional history exists DTap / Tdap / Td (3 - Td or Tdap) 05/08/2028 05/08/2018, 11/13/2008 RSV Ped < 20 months Aged Out No longe r eligible based on patient's age to complete this topic Care Teams State'S Attorney Relationship Specialty Start Date End Date Shaggy Coronado MD PCP - General Trailer Technician 07/22/21
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
--- OUTSIDE RECORDS SUMMARY | 2024-06-06 14:19 | XMS_ITS | Clinical Summary ---
Author Organization Unknown Care Team Providers Care Corporate Technical Recruiter Name Role Phone AIMEE SAUCEDO, BRIDGER Unavailable Unavailable GIBLERT RN, LENI Unavailable Unavailable Payers Payer Name Policy Type Policy Number Effective Date Expira tion Date [facility] [id number] [place] [id number] MEDICARE - [facility] [id number] Problems Condition Name Condition Details Condition Category [...] 20 mg capsule 2022-04 00:00: 00 Yes [id number] Per instruc tions EVERY DAY Per instructio ns EVERY DAY (route: oral) Med Classific ation: Central Nervous System Agents guanfacine ER 2 mg tablet,exte nded release 24 hr 2022-04 00:00: 00 01-22 00:00 :00 No [id number] Per instruc tions EVERY Per instructio ns EVERY (route: oral) Med Classific ation: Central Nervous System Agents lorazepam 1 mg tablet 2022-04 00:00: 00 Yes [id number] Per instruc tions TWICE DAILY NEEDED Per instructio ns TWICE DAILY NEEDED (route: oral) Med Classific ation: Central Nervous System Agents melatonin 5 mg tablet 2022-04 00:00: 00 Yes [id number] Per instruc tions EVERY NIGHT AT BEDTIME NEEDED Per instructio ns EVERY NIGHT AT BEDTIME NEEDED (route: oral) Med Classific ation: Central Nervous System Agents olanzapine 5 mg tablet 2022-04 00:00: 00 01-22 00:00 :00 No [id number] Per instruc tions EVERY DAY NEEDED Per instructio ns EVERY DAY NEEDED (route: oral) Med Classific ation: Central Nervous System Agents DILT-XR 120 mg capsule, extended release 2022-04 00:00: 00 Yes [id number] Unavailable Per instruc tions DAILY Per instructio ns DAILY (route: oral) Med Classific ation: Cardiovas cular Therapy Agents olanzapine 15 mg tablet 12-21 00:00: 00 Yes [id number] Per instruc tions AT BEDTIME Per instructio ns AT BEDTIME (route: oral) Med Classific ation: Central Nervous System Agents acetaminoph en 325 mg tablet 2022-04 00:00: 00 Yes [id number] 325 mg EVERY 4 HOURS 325 mg EVERY 4 HOURS (route: oral) Med Classific ation: Analgesic , Anti-infl ammatory or Antipyret ic cetirizine 10 mg tablet 2022-04 0 00:00: 00 Yes [id number] 10 mg DAILY 10 mg DAILY (route: oral) Med Classific ation: Respirato ry Therapy Agents guanfacine 2 mg tablet 2022-04 00:00: 00 11-16 23:59 :00 No [id number] 2.5 mg DAILY 2.5 mg DAILY (route: oral) Med Classific ation: Cardiovas cular Therapy Agents levothyroxi ne 50 mcg tablet 2022-04 0 00:00: 00 Yes [id number] 50 mcg DAILY 50 mcg DAILY (route: oral) Med Classific ation: Endocrine lisinopril 2.5 mg tablet 2022-04 00:00: 00 11-16 23:59 :00 No [id number] 25 mg DAILY 25 mg DAILY (route: oral) Med Classific ation: Cardiovas cular Therapy Agents pravastatin 10 mg tablet 2022-04 00:00: 00 11-16 23:59 :00 No [id number] 10 mg BEDTIME 10 mg BEDTIME (route: oral) Med Classific ation: Cardiovas cular Therapy Agents guanfacine ER 3 mg tablet,exte nded release 24 hr 11-16 00:00: 00 Yes [id number] 3 mg DAILY 3 mg PRISCILLA Y (route: oral) Med Classific ation: Central Nervous System Agents lisinopril 5 mg tablet 11-16 00:00: 00 12-26 23:59 :00 No [id number] 25 mg DAILY 25 mg DAILY (route: oral) Med Classific ation: Cardiovas cular Therapy Agents pravastatin 40 mg tablet 11-16 00:00: 00 Yes [id number] 40 mg BEDTIME 40 mg BEDTIME (route: oral) Med Classific ation: Cardiovas cular Therapy Agents metformin ER 500 mg tablet,exte nded release 24hr (osmotic) 12-26 00:00: 00 Yes [id number] 500 mg DAILY 500 mg DAILY (route: oral) Med Classific ation: Endocrine docusate sodium 100 mg capsule 12-26 00:00: 00 Yes [id number] 1 capsule 2 TIMES DAILY 1 capsule 2 TIMES DAILY (route: oral) Med Classific ation: Gastroint estinal Therapy Agents lisinopril 2.5 mg tablet 12-26 00:00: 00 Yes [id number] 2.5 mg DAILY 2.5 mg DAILY (route: oral) Med Classific ation: Cardiovas cular Therapy Agents multivitami n with minerals tablet 12-26 00:00: 00 Yes [id number] 1 tablet DAILY 1 tablet DAILY (route: oral) Med Classific ation: Electroly te Balance-N utritiona l Products Plan of Treatment Planned Activity Planned Date [...] HEALTH.] Future Scheduled Test SKILLED NU RSE TO PRE-POUR MEDICATION PER MEDICATION LIST (FREQUENCY). [code = SKILLED NURSE TO PRE-POUR MEDICATION PER MEDICATION LIST (FREQUENCY).] Future Scheduled Test SKILLED NU RSE TO O/A OF PATIENTS MENTAL/BEHAVIORAL STATUS, ASSESS VITAL SIGNS (FREQUENCY OF VS), ALLOW 2 PRNS FOR MEDICATION MANAGEMENT. [code = SKILLED NURSE TO O/A OF PATIENTS MENTAL/BEHAVIORAL STATUS, ASSESS VITAL SIGNS (FREQUENCY OF VS), ALLOW 2 PRNS FOR MEDICATION MANAGEMENT.] Future Scheduled Test SKILLED NU RSE FOR O/A OF ALTERED MOOD [code = SKILLED NURSE FOR O/A OF ALTERED MOOD] Future Scheduled Test SKILLED NU RSE MAY PICKUP AND TRANSPORT MEDICATIONS [code = SKILLED NURSE MAY PICKUP AND TRANSPORT MEDICATIONS] Future Scheduled Test SKILLED NU RSE FOR O/A OF GENERAL HEALTH STATUS OF PAIN, CARDIAC, RESPIRATORY, GASTROINTESTINAL, GENITOURINARY, SKIN, NEUROLOGIC, ENDOCRINE SYSTEMS TO IDENTIFY CHANGES ASSOCIATED WITH EXACERBATION FOR EARLY INTERVENTION OF COMPLICATIONS WEEKLY. [code = SKILLED NURSE FOR O/A OF GENERAL HEALTH STATUS OF PAIN, CARDIAC, RESPIRATORY, GASTROINTESTINAL, GENITOURINARY, SKIN, NEUROLOGIC, ENDOCRINE SYSTEMS TO IDENTIFY CHANGES ASSOCIATED WITH EXACERBATION FOR EARLY INTERVENTION OF COMPLICATIONS WEEKLY.] Future Scheduled Test SKILLED NU RSE FOR O/A AND SKILLED TEACHING RELATED TO MANAGEMENT OF DEPRESSIVE SYMPTOMS AND/OR DEPRESSION. SN TO REPORT SIGNIFICANT CHANGE IN DEPRESSIVE SYMPTOMS TO CLINICAL PROVIDER FOR EARLY INTERVENTION. [code = SKILLED NURSE FOR O/A AND SKILLED TEACHING RELATED TO MANAGEMENT OF DEPRESSIVE SYMPTOMS AND/OR DEPRESSION. SN TO REPORT SIGNIFICANT CHANGE IN DEPRESSIVE SYMPTOMS TO CLINICAL PROVIDER FOR EARLY INTERVENTION.] Future Scheduled Test SKILLED NU RSE TO [...] ACCESS COMMUNITY RESOURCES AND PSYCHOSOCIAL SUPPORT SERVICES.] Future Scheduled Test SKILLED NU RSE WILL MAINTAIN SITUATIONAL AWARENESS FOR SAFETY AND WILL NOTIFY CLINICAL BEEKEEPER AND PHYSICIAN/PROVIDER WITH ANY CHANGE IN CONDITION. [code = SKILLED NURSE WILL MAINTAIN SITUATIONAL AWARENESS FOR SAFETY AND WILL NOTIFY CLINICAL BEEKEEPER AND PHYSICIAN/PROVIDER WITH ANY CHANGE IN CONDITION.] Goal 2024-01-15 Patient Goal - T O PREVENT DIABETES; TO LOSE WEIGHT; TO STY OUT OF HOSPITAL Goal 2024-03-15 Patient Goal - T O PREVENT DIABETES; TO LOSE WEIGHT; TO STY OUT OF HOSPITAL Goal 2024-05-13 Patient Goal - T O PREVENT DIABETES; [...] WEIGHT; TO STY OUT OF HOSPITAL Goal 2023-05-17 Patient Goal - T O PREVENT DIABETES; TO LOSE WEIGHT; TO STY OUT OF HOSPITAL Goal Provider Goal - A PLAN OF CARE WILL BE ESTABLISHED THAT MEETS PATIENT'S HALF-WAY NEEDS AND INCLUDES PATIENT GOAL FOR HOME HEALTH. Goal Provider Goal - PATIENT WILL COMPLY WITH MEDICATION WHEN SKILLED NURSE PRE-POURS MEDICATION THROUGHOUT CERTIFICATION PERIOD. Goal Provider Goal - ALTERED MENTAL/BEHAVIORAL STATUS WILL BE IDENTIFIED PROMPTLY AND INTERVENTION INITIATED QUICKLY TO MINIMIZE ASSOCIATED RISKS THROUGHOUT CERTIFICATION PERIOD. Goal Provider Goal - PATIENT WILL BE ABLE TO PERFORM DAILY FUNCTIONS AND HAVE OPTIMAL IMPROVEMENT IN MOOD STABILITY THROUGHOUT CERTIFICATION PERIOD. Goal Provider Goal - SKILLED NURSE PICKED UP AND TRANSPORTED MEDICATIONS FOR SAFETY. Goal Provider Goal - CHANGE IN GENERAL HEALTH STATUS WILL BE IDENTIFIED AND REPORTED TO PHYSICIAN FOR PROMPT INTERVENTION TO MINIMIZE ASSOCIATED RISKS THROUGHOUT CERTIFICATION PERIOD. Goal Provider Goal - PATIENT WILL REMAIN SAFE WITHOUT DECOMPENSATION IN DEPRESSIVE CONDITION, WHILE MAINTAINING OPTIMAL LEVEL OF MENTAL HEALTH AND WELL BEING THROUGHOUT CERTIFICATION PERIOD. Goal Provider Goal - PSYCHOSOCIAL NEEDS WILL BE IDENTIFIED AND PLAN IMPLEMENTED TO MINIMIZE RISK THROUGHOUT CERTIFICATION PERIOD. Goal Provider Goal - PATIENT WILL REMAIN SAFE IN THE COMMUNITY AND WILL BE FREE OF DANGER TO SELF AND OTHERS THROUGHOUT THE CERTIFICATION PERIOD. Progress Notes Progress Notes <paragraph>[Visit Date: 2024 by LENI HUNT RN]:</paragraph><paragraph>PT IS A 53 YEAR OLD MALE WITH DX AUTISM,HTN, DIABETES, HYPOTHYROIDISM, GENERALIZE ANXIETY DISORDER, AND BIPOLAR DISEASE. HE LIVES ALONE BUT HAS SUPPORT FROM FAMILY AND N. THE PT ATTENDS THERAPY AND IS ACTIVE WITH A PSYCH PROVIDER.THE CLIENT IS SEEN WEEKLY FOR MENTAL/PHYSICAL ASSESSMENTS, EDUCATION RELATED TO PLAN OF CARE, MEDS, COPING STRATEGIES, ORGANIZATION SKILLS, AND DIABETIC/ MED MANAGEMENT. HE IS NOT SAFE OR RELIABLE TO MANAGE HIS MEDS INDEPENDENTLY. HE DENIES SI BUT HAS FEELINGS OF DEPRESSION. PT REQUIRES FREQUENT MONITORING FOR EMOTIONAL SUPPORT AND ENCOURAGEMENT TO FOLLOW THROUGH WITH GOALS.</paragraph> Encounters Start Date/Time End Date/Time Encounter Type Admission Type Attending [facility] Care Department Encounter ID Discharge Date Discharge Status Discharge Condition Discharge Reason Percent Goals Met 2023-01-22 00:00:00 2024-07-14 00:00:00 Outpatient RECERTLENI [facility] [id number]
--- OUTSIDE RECORDS SUMMARY | 2024-06-06 14:19 | XMS_ITS | Clinical Summary ---
Author Organization Unknown Care Team Providers Care Pharmaceutical Representative Name Role Phone AIMEE SAUCEDO, BRIDGER Unavailable Unavailable GILBERT RN, LENI Unavailable Unavailable Payers Payer Name Policy Type Policy Number Effective Date Expira tion Date [facility] [id number] MEDICAID [place] [id number] MEDICARE - [facility] [id number] Problems Condition Name Condition Details Condition Category [...] 20 mg capsule 2022-04 00:00: 00 Yes [id number] Per instruc tions EVERY DAY Per instructio ns EVERY DAY (route: oral) Med Classific ation: Central Nervous System Agents guanfacine ER 2 mg tablet,exte nded release 24 hr 2022-04 00:00: 00 01-22 00:00 :00 No [id number] Per instruc tions EVERY Per instructio ns EVERY (route: oral) Med Classific ation: Central Nervous System Agents lorazepam 1 mg tablet 2022-04 00:00: 00 Yes [id number] Per instruc tions TWICE DAILY NEEDED Per instructio ns TWICE DAILY NEEDED (route: oral) Med Classific ation: Central Nervous System Agents melatonin 5 mg tablet 2022-04 00:00: 00 Yes [id number] Per instruc tions EVERY NIGHT AT BEDTIME NEEDED Per instructio ns EVERY NIGHT AT BEDTIME NEEDED (route: oral) Med Classific ation: Central Nervous System Agents olanzapine 5 mg tablet 2022-04 00:00: 00 01-22 00:00 :00 No [id number] Per instruc tions EVERY DAY NEEDED Per instructio ns EVERY DAY NEEDED (route: oral) Med Classific ation: Central Nervous System Agents DILT-XR 120 mg capsule, extended release 2022-04 00:00: 00 Yes [id number] Unavailable Per instruc tions DAILY Per instructio ns DAILY (route: oral) Med Classific ation: Cardiovas cular Therapy Agents olanzapine 15 mg tablet 12-21 00:00: 00 Yes [id number] Per instruc tions AT BEDTIME Per instructio ns AT BEDTIME (route: oral) Med Classific ation: Central Nervous System Agents acetaminoph en 325 mg tablet 2022-04 00:00: 00 Yes [id number] 325 mg EVERY 4 HOURS 325 mg EVERY 4 HOURS (route: oral) Med Classific ation: Analgesic , Anti-infl ammatory or Antipyret ic cetirizine 10 mg tablet 2022-04 0 00:00: 00 Yes [id number] 10 mg DAILY 10 mg DAILY (route: oral) Med Classific ation: Respirato ry Therapy Agents guanfacine 2 mg tablet 2022-04 00:00: 00 11-16 23:59 :00 No [id number] 2.5 mg DAILY 2.5 mg DAILY (route: oral) Med Classific ation: Cardiovas cular Therapy Agents levothyroxi ne 50 mcg tablet 2022-04 0 00:00: 00 Yes [id number] 50 mcg DAILY 50 mcg DAILY (route: oral) Med Classific ation: Endocrine lisinopril 2.5 mg tablet 2022-04 00:00: 00 11-16 23:59 :00 No [id number] 25 mg DAILY 25 mg DAILY (route: oral) Med Classific ation: Cardiovas cular Therapy Agents pravastatin 10 mg tablet 2022-04 00:00: 00 11-16 23:59 :00 No [id number] 10 mg BEDTIME 10 mg BEDTIME (route: oral) Med Classific ation: Cardiovas cular Therapy Agents guanfacine ER 3 mg tablet,exte nded release 24 hr 11-16 00:00: 00 Yes [id number] 3 mg DAILY 3 mg PRISCILLA Y (route: oral) Med Classific ation: Central Nervous System Agents lisinopril 5 mg tablet 11-16 00:00: 00 12-26 23:59 :00 No [id number] 25 mg DAILY 25 mg DAILY (route: oral) Med Classific ation: Cardiovas cular Therapy Agents pravastatin 40 mg tablet 11-16 00:00: 00 Yes [id number] 40 mg BEDTIME 40 mg BEDTIME (route: oral) Med Classific ation: Cardiovas cular Therapy Agents metformin ER 500 mg tablet,exte nded release 24hr (osmotic) 12-26 00:00: 00 Yes [id number] 500 mg DAILY 500 mg DAILY (route: oral) Med Classific ation: Endocrine docusate sodium 100 mg capsule 12-26 00:00: 00 Yes [id number] 1 capsule 2 TIMES DAILY 1 capsule 2 TIMES DAILY (route: oral) Med Classific ation: Gastroint estinal Therapy Agents lisinopril 2.5 mg tablet 12-26 00:00: 00 Yes [id number] 2.5 mg DAILY 2.5 mg DAILY (route: oral) Med Classific ation: Cardiovas cular Therapy Agents multivitami n with minerals tablet 12-26 00:00: 00 Yes [id number] 1 tablet DAILY 1 tablet DAILY (route: [...] AWARENESS FOR SAFETY AND WILL NOTIFY CLINICAL IRON GUARDRAIL INSTALLER AND PHYSICIAN/PROVIDER WITH ANY CHANGE IN CONDITION. [code = SKILLED NURSE WILL MAINTAIN SITUATIONAL AWARENESS FOR SAFETY AND WILL NOTIFY CLINICAL IRON GUARDRAIL INSTALLER AND PHYSICIAN/PROVIDER WITH ANY CHANGE IN CONDITION.] Goal 2023-05-17 Patient Goal - T O [...] CARE WILL BE ESTABLISHED THAT MEETS PATIENT'S [facility] NEEDS AND INCLUDES PATIENT GOAL FOR HOME [...] End Date/Time Encounter Type Admission Type Attending [facility] Care Department Encounter ID Discharge Date Discharge Status Discharge Condition Discharge Reason Percent Goals Met 2023-01-22 00:00:00 2024-07-14 00:00:00 Outpatient RECERTLENI KAPLAN [facility] [id number]
== END 2024-06-06 11:59 | disposition home or self-care (01) ==
LOC: HO.HBS 11:42
PROVIDERS: PCP Internal Medicine; Visit Provider Physician Assistant Surgical
DX: E66.812 Obesity, class 2 (principal); Z68.35 Body mass index [BMI] 35.0-35.9, adult
CPT/HCPCS: 99214; G2211